=== PATIENT | female | born 1950 | race Caucasian/White ===

== ENCOUNTER 2024-01-25 10:02 | Day surgery (SDC) | payer BC, MEDICAID ==
[2024-01-21 11:41] LABS: BASOPHILS % (AUTO) 1.1 % (0-1); EOSINOPHILS # (AUTO) 0.1 X10'3 (0-0.9); EOSINOPHILS % (AUTO) 1.7 % (0-6); LYMPHOCYTES # (AUTO) 1.2 X10'3 (1.1-4.8); LYMPHOCYTES % (AUTO) 25.7 % (21-51); MEAN CORPUSCULAR HEMOGLOBIN 30.9 PG (27.0-31.0); MEAN CORPUSCULAR HGB CONC 33.4 g/dL (33.0-36.5); MEAN CORPUSCULAR VOLUME 92.3 FL (78-98); MEAN PLATELET VOLUME 7.6 FL (7.4-10.4); MONOCYTES # (AUTO) 0.4 X10'3 (0-0.9); NEUTROPHILS # (AUTO) 2.9 X10'3 (1.8-7.7); NEUTROPHILS % (AUTO) 62.5 % (42-75); PRE OP HEMATOCRIT 40.4 % (35.0-45.0); PRE OP HEMOGLOBIN 13.5 g/dL (12.0-16.0); PRE OP PLATELET COUNT 231 X10'3 (140-440); PRE OP WHITE BLOOD COUNT 4.7 10'3 (4.8-10.8); RED BLOOD COUNT 4.38 X10'6 (4.20-5.60); RED CELL DISTRIBUTION WIDTH 14.5 % (11.5-14.5)
[2024-01-21 11:57] LABS: ALBUMIN 3.7 G/DL (3.4-5.0); ALKALINE PHOSPHATASE 69 IU/L (46-116); BLOOD UREA NITROGEN 21 MG/DL (7-18); BUN/CREATININE RATIO 32.8 (10.0-20.0); CALCIUM 9.4 MG/DL (8.5-10.1); CHLORIDE 100 MMOL/L (99-107); CREATININE 0.64 MG/DL (0.40-0.90); PRE OP ALT 41 U/L (30-65); PRE OP ANION GAP 8 (8-16); PRE OP AST 23 U/L (10-37); PRE OP BILIRUB, TOTAL 0.3 MG/DL (0.0-1.0); PRE OP GLUCOSE 90 MG/DL (70-104); PRE OP POTASSIUM 3.9 MMOL/L (3.4-5.1); PRE OP SODIUM 138 MMOL/L (135-145); TOTAL CARBON DIOXIDE 29.9 MMOL/L (24-32); TOTAL PROTEIN 7.5 G/DL (6.4-8.2); eGFR > 90 ML/MIN
[2024-01-21 12:00] LABS: PRE OP PROTIME 10.9 SECONDS (9.0-12.0)
[2024-01-25] VITALS (8 sets, daily range): BP systolic 125–139; BP diastolic 63–78; PULSE 77–88; RESP 12–16; TEMP 98.5; O2SAT 95–100
[~2024-01-25] VITALS: Ht 170.2 cm; Wt 106.4 kg
[2024-01-25] MEDS: DOCUMENT DATE & TIME OF BETA-BLOCKER PO ONE (05:30)
[~2024-01-25 10:02] MED LIST: ACET-2006 PO; ALBU8HFA INH; AMIT25TA9 PO; APIX5TAB3 PO; ATOR20TA66 PO; BACL20TA PO; CELE-148 PO; ESCI20TA39 PO; HYDR-3973 PO; HYDR50TA4 PO; METO-384 PO; cefazolin 2gm/D5W 100mL 100 ML IV ONE
[2024-01-25] MEDS: famotidine 20mg tablet PO ONE (10:50)
[2024-01-25] MEDS: ringers solution, lacted 1,000 ML IV SCH (10:50)
[2024-01-25] MEDS ORDERED: BUPIVAcaine 2.5mg/ml inj 50ml vial (contains preservative) ONE (10:50)
[2024-01-25] MEDS ORDERED: fentaNYL/PF 50MCG/1 ML 2ML syringe ONE (10:57)
[2024-01-25] MEDS ORDERED: sevoflurane 250ml liquid IH ONE (11:00)
[2024-01-25] MEDS ORDERED: enalaprilat dihydrate 2.5mg/2ml vial IV PRN (11:55)
[2024-01-25] MEDS ORDERED: ringers solution, lacted 1,000 ML IV SCH (11:55)
[2024-01-25] MEDS ORDERED: labetalol 20mg/4ml (5mg/ml) syringe IV PRN (11:55)
[2024-01-25] MEDS ORDERED: meperidine/PF 25mg/ml syringe IV PRN ×3 (11:55)
[2024-01-25] MEDS ORDERED: ondansetron/PF 4mg/2ml inj IV PRN (11:55)
[2024-01-25] MEDS ORDERED: morphine 4 MG/ML inj SYRINge IV PRN (11:55)
[2024-01-25] MEDS ORDERED: proCHLORperazine 10 MG/2 ml inj IV PRN (11:55)
[2024-01-25] MEDS ORDERED: morphine 2 MG/ML inj. syringe IV PRN (11:55)
[2024-01-25] MEDS: BUPIVAcaine/PF 2.5mg/ml (0.25%) 10ml vial ONE (14:23)
[2024-01-25] MEDS: LIDOcaine 1% (10mg/ml)w/preservative inj. 20ml MDV ONE (14:24)
== END 2024-01-25 13:17 | disposition home or self-care (01) ==
LOC: PAS 10:02
PROVIDERS: ATTEND Surgery
DX: D05.12 Intraductal carcinoma in situ of left breast (principal); I10 Essential (primary) hypertension; I48.91 Unspecified atrial fibrillation; E78.5 Hyperlipidemia, unspecified; E66.9 Obesity, unspecified; F32.A Depression, unspecified; I20.9 Angina pectoris, unspecified; I25.2 Old myocardial infarction; M19.90 Unspecified osteoarthritis, unspecified site; Z85.42 Personal history of malignant neoplasm of other parts of uterus; Z87.891 Personal history of nicotine dependence; Z79.01 Long term (current) use of anticoagulants; Z79.2 Long term (current) use of antibiotics; Z79.891 Long term (current) use of opiate analgesic; Z79.899 Other long term (current) drug therapy; Z90.710 Acquired absence of both cervix and uterus; Z98.891 History of uterine scar from previous surgery; Z68.36 Body mass index [BMI] 36.0-36.9, adult
CPT/HCPCS: 19301; 36415; 76098; 80053; 82948; 85025; 85610; 85730; J0690; J1100; J2405; J2704; J3010; J3490; J7030; J7120; Z7506; Z7508; Z7512; 88307; A4215; A4618; A6449; A7000